=== PATIENT | male | born 1975 | race Hispanic/Latino ===

== ENCOUNTER 2021-12-29 07:51 | Outpatient (CLI) | payer BC ==
[2021-12-29 09:24] LABS: Anion Gap 16 mmol/L (10-20); BUN (Urea Nitrogen) 15 mg/dL (8.9-20.6); Calc. Creatinine Clearance 0 mL/min (70-130); Calcium 9.7 mg/dL (7.8-10.44); Carbon Dioxide 27 mmol/L (22-29); Chloride 101 mmol/L (98-107); Glucose 129 mg/dL (70-105); Potassium 4.7 mmol/L (3.5-5.1); Sodium 139 mmol/L (136-145)
[2021-12-29 16:11] LABS: SARS-CoV-2 PCR by NAA Not Detected (NotDetected)
== END 2021-12-29 07:52 | disposition home or self-care (01) ==
LOC: CSHLAB 07:51
PROVIDERS: ATTEND Otolaryngology Plastic Surgery within the Head & Neck
DX: Z01.818 Encounter for other preprocedural examination (principal); Z20.822 Contact with and (suspected) exposure to COVID-19
CPT/HCPCS: 80048; 93005; 93010; U0003; U0005

== ENCOUNTER 2022-01-02 09:22 | Observation (INO) | payer BC ==
[2021-12-29 13:00] VITALS: BMI 29.9
[2022-01-02] MEDS ORDERED: Lidocaine 1% MPF 2 ML VIAL ONE (13:53)
[2022-01-02] MEDS ORDERED: Oxymetazoline HCl 0.05% ( 15 ML ) ONE ×2 (14:23→14:51)
[2022-01-02] MEDS ORDERED: Rocuronium Bromide 10 MG/ML (10ML VIAL) ONE (14:25)
[2022-01-02] MEDS ORDERED: Lidocaine 2% PF 5 ML VIAL ONE (14:25)
[2022-01-02] MEDS ORDERED: Fentanyl 250 MCG/5 ML VIAL ONE (14:25)
[2022-01-02] MEDS ORDERED: Midazolam HCl 2 mg/2 ml Vial ONE ×2 (14:25→14:40)
[2022-01-02] MEDS ORDERED: Ondansetron PF 4 MG/2 ML Vial ONE (14:25)
[2022-01-02] MEDS ORDERED: PROPOFOL 20 ML ONE ×2 (14:25→15:23)
[2022-01-02] MEDS ORDERED: Mupirocin 2% Ointment 22 GM Tube ONE (14:48)
[2022-01-02] MEDS ORDERED: Ondansetron PF 4 MG/2 ML Vial IVP PRN (14:49)
[2022-01-02] MEDS ORDERED: Acetaminophen 325 MG TAB PO PRN (14:49)
[2022-01-02] MEDS ORDERED: Glycopyrrolate 0.2 MG/ML 5 ML SYRINGE ONE (15:16)
[2022-01-02] MEDS ORDERED: Fentanyl 100 MCG/2 ML VIAL ONE ×2 (15:29→17:38)
[2022-01-02] MEDS: Acetaminophen W/ Codeine 5 ML UDCUP PO PRN (19:30)
[2022-01-02] MEDS: metFORMIN 500 MG TAB PO SCH (20:10)
[2022-01-03] MEDS: Acetaminophen W/ Codeine 5 ML UDCUP PO PRN ×2 (00:08→08:38)
[2022-01-03] MEDS: metFORMIN 500 MG TAB PO SCH (05:13)
[2022-01-03] MEDS ORDERED: Dexamethasone 20 MG/5 ML VIAL SLOW IVP SCH (06:00)
[2022-01-03] MEDS: Allopurinol 300 MG TAB PO SCH ×2 (07:51→08:38)
[2022-01-03 07:53] VITALS: BP 143/81; TEMP 98.8
[2022-01-03] MEDS ORDERED: Atorvastatin Calcium 10 MG TAB PO SCH (21:00)
== END 2022-01-03 09:20 | disposition home or self-care (01) ==
LOC: CSHSDC 09:22 → INTOOBSV 14:49 → CSHTELE 14:49 → UNDOADMIN 19:13 → CSHTELE 19:13
PROVIDERS: ADMIT Otolaryngology Plastic Surgery within the Head & Neck; ATTEND Otolaryngology Plastic Surgery within the Head & Neck
PROC: 0CTPXZZ Resection of Tonsils, External Approach (ICD-10-PCS; principal; 2022-01-02)
PROC: 0CTNXZZ Resection of Uvula, External Approach (ICD-10-PCS; 2022-01-02)
PROC: 09SM0ZZ Reposition Nasal Septum, Open Approach (ICD-10-PCS; 2022-01-02)
PROC: 095L0ZZ Destruction of Nasal Turbinate, Open Approach (ICD-10-PCS; 2022-01-02)
DX: J34.2 Deviated nasal septum (principal); J34.3 Hypertrophy of nasal turbinates; K13.79 Other lesions of oral mucosa; J35.01 Chronic tonsillitis; J34.89 Other specified disorders of nose and nasal sinuses; H61.23 Impacted cerumen, bilateral; G47.33 Obstructive sleep apnea (adult) (pediatric); E11.9 Type 2 diabetes mellitus without complications; M10.9 Gout, unspecified; E78.5 Hyperlipidemia, unspecified; Z79.84 Long term (current) use of oral hypoglycemic drugs; Z79.899 Other long term (current) drug therapy
CPT/HCPCS: 36416; 88302; 88304; 94760; 96374; G0378; J1100; J2001; J2250; J2405; J2704; J3010